=== PATIENT | male | born 1990 | race Caucasian/White ===

== ENCOUNTER 2023-12-20 17:45 | Emergency (ER) | payer OTHER, SELFPAY ==
--- NOTE | ~2023-12-20 | XR_ITS ---
EXAMINATION: XR chest 2V Exam Date/Time: 12/20/2023 17:55 CDT HISTORY: Lt. sided chest pain/cough/wheezing/sob x5 days; worsening Comparison: 11/03/2012, report only. RESULT: Lines, tubes, and devices: None. Lungs and pleura: Clear. Cardiomediastinal silhouette: Stable. Other: No acute osseous or upper abdominal finding. IMPRESSION: No acute cardiopulmonary process. Reviewed, dictated and finalized at location K.
--- NOTE | ~2023-12-20 | CT_ITS ---
EXAMINATION: CTA chest PE protocol DATE: 12/20/2023 20:20 INDICATION: chest pain, shortness of breath elevated D-dimer TECHNIQUE: Computed tomography angiography (CTA) of the chest was performed with 100 mL Omnipaque-350 intravenous contrast timed to evaluate the pulmonary arteries. Coronal maximum intensity projection 3D-reconstructions were created by the technologist. The dose-length product (DLP) was 453.02 mGy-cm. Automated exposure control and iterative reconstruction technique were employed. COMPARISON: X-ray chest, same date. FINDINGS: Lung parenchyma and airways: Clear. Pleura: Unremarkable. Thoracic inlet, axillae and chest wall: Unremarkable. Thoracic aorta: No significant dilation. No dissection. Mediastinum: Normal. Heart and pericardium: Normal. Coronary artery calcifications: Absent. Upper abdomen: No significant finding. Bones: Mild height loss at T9. Pulmonary arteries: Study quality: Beam hardening artifact, quantum mottle, and suboptimal contrast b olus, study remains diagnostic. No pulmonary emboli detected. IMPRESSION: No CT evidence of acute pulmonary embolus. No acute process detected in the chest. Mild height loss at T9, likely chronic discopathy by acute pain/tenderness. Reviewed, dictated and finalized at location K.
--- NOTE | 2023-12-20 17:49 | WPDEDEXPGENP ---
HPI - General Ped General Chief complaint: Upper Respiratory Infection Stated complaint: cough Time Seen by Provider: 12/20/23 17:48 Source: patient Mode of arrival: ambulatory Limitations: no limitations Nursing Documentation: reviewed/agree History of Present Illness HPI narrative: 33-year-old white male complains of a cough for the last 4 days worse in the last 2 days coughing up yellow sputum he has had some sinus drainage headache and fever up to 101.92 days ago feel short of breath off and on when he does not have a Fielder fever he feels pretty good he has been taking Motrin. He feels tired and fatigued says he has a sore throat from coughing. He has not seen a doctor in 3 years he has had some wheezing. Smokes half pack a day. He has had decreased appetite. Feels little lightheaded at times. Denies any problems eating or drinking voiding or stooling rash or itching bleeding or bruising swelling lumps or bumps. he had chest pain for last 5 minutes associated with his cough. Denies any runny nose he works at a [employer]. He has been taking ibuprofen which helps his headache and fever. His breathing is worth with smoke. His headache is a 1/10. denies any other complaints Past medical history drinking 10-12 beers a day for several years when he was younger. , chronic bronchitis no medications or surgeries he does not have a primary care provider. Had a history of anxiety. Denies any history of Heart, lung kidney liver disease hypertension depression cancer . 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 Not had any COVID exposure. Related Data Allergies Allergy/AdvReac Type Severity Reaction Status Date / Time No Known Allergies Allergy Verified 12/20/23 17:47 Pediatric Review of Systems All systems ED: reviewed and negative except as stated Pediatric Exam Narrative: Physical exam: White male no apparent distress. ?Head:? Normocephalic atraumatic.? Eyes conjunctiva pink sclera nonicteric.? Ears TMs are normal.? Oropharynx is clear with moist mucous membranes no exudates.? Neck is supple no lymphadenopathy nontender full range of motion.? Back is nontender.? Chest nontender.? Lungs are bronchial breath sounds without wheezes rales or rhonchi.? Heart is regular rate rhythm without murmurs gallops or rubs.? Abdomen soft and nontender no hepatosplenomegaly or masses no CVA tenderness no abdominal bruits.? Extremities no cyanosis clubbing or edema.? Neurological she is alert and oriented x4 motor and sensory grossly intact.? Skin is warm and dry without lesions. Course Vital Signs Vital signs: Vital Signs Temperature 37.9 C H 12/20/23 17:53 Pulse Rate 104 H 12/20/23 17:53 Respiratory Rate 20 12/20/23 17:53 Blood Pressure 135/78 12/20/23 17:53 Pulse Oximetry 96 12/20/23 17:53 Oxygen Delivery Room Air 12/20/23 17:53 Temperature 37.6 C 12/20/23 20:33 Pulse Rate 83 12/20/23 20:30 Respiratory Rate 18 12/20/23 20:30 Blood Pressure 121/74 12/20/23 20:30 Pulse Oximetry 98 12/20/23 20:30 Oxygen Delivery Room Air 12/20/23 20:30 Medical Decision Making [facility] Narrative Medical decision making narrative: ? Patient placed in room: 3 ? History and physical was performed. COVID flu RSV were negative lactic acid was normal, D-dimer is elevated at 2.43. CBC normal coags normal CMP except elevation in liver enzymes AST 249, ALT 356 alk-phos 161 Chest x-ray showed no active disease CT of chest PE study was negative for PE. Per radiologist:No CT evidence of acute pulmonary embolus. No acute process detected in the chest. Mild height loss at T9, likely chronic discopathy by acute pain/tenderness. Independent Historian: patient External Source Review: Differential Dx includes but not limited to: pneumonia bronchitis as medic bronchitis COVID flu RSV Medications were Reviewed: Medications given: DuoN
[2023-12-20 17:53] VITALS: BP 135/78; PULSE 104; RESP 20; TEMP 37.9; O2SAT 96
[2023-12-20 17:56] VITALS: O2SAT 96
[2023-12-20 17:59] VITALS: PULSE 100; RESP 20; O2SAT 99
--- NOTE | 2023-12-20 17:59 | ECG_ITS ---
SEE SCANNED COPY FOR CONFIRMED REPORT MTDD
[2023-12-20] MEDS: IBUPROFEN 600 MG TABLET PO (18:22)
[2023-12-20] MEDS: IPRATROPIUM 0.5 MG/ALBUTEROL SULFATE 2.5 MG AMPUL.NEB 3 ML INHALATION (18:37)
[2023-12-20 18:39] VITALS: PULSE 100; RESP 20; O2SAT 96
[2023-12-20 18:41] LABS: Hematocrit 46.3 % (40.0-54.0); Hemoglobin 15.4 g/dL (14.0-18.0); Mean Corpuscular HGB Conc 33.3 g/dL (32-36); Mean Corpuscular Hemoglobin 30.2 pg (27.0-31.0); Mean Corpuscular Volume 90.8 fL (78.0-102.0); Mean Platelet Volume 10.4 fl (8.7-11.0); Platelet Count Result 189 K/mm3 (150-420); Red Cell Distribution Width 13.2 % (11.6-14.4); White Blood Count 7.2 K/mm3 (4.8-10.8)
[2023-12-20 18:54] LABS: Alanine Aminotransferase 356 U/L (16-63); Albumin Level 3.8 g/dL (3.4-5.0); Alkaline Phosphatase 161 U/L (46-116); Anion Gap 11 mmol/L (4-12); Aspartate Amino Transferase 249 U/L (15-37); Bilirubin,Total 0.9 mg/dL (0.00-1.00); Blood Urea Nitrogen 8 mg/dL (7-18); Calcium 8.6 mg/dL (8.5-10.1); Carbon Dioxide 27 mmol/L (21-32); Chloride 104 mmol/L (98-108); Estimated CRCL calculation 98 ml/min; Estimated Glomerular Filt Rate > 60; Glucose 108 mg/dL (70-99); Osmolality Calculated 293 mOsm/kg (285-295); Potassium 3.9 mmol/L (3.5-5.1); Sodium 142 mmol/L (136-145); Total Protein 7.1 g/dL (6.4-8.2)
[2023-12-20 19:01] LABS: Partial Thromboplastin Time 27.9 Sec (23.9-30.70); Prothrombin Time 11.3 Seconds (9.50-12.1)
[2023-12-20 19:07] LABS: D Dimer 2.43 mg/L (0.19-0.50)
[2023-12-20 19:24] LABS: Influenza A QL RT-PCR Negative (Negative); Influenza B QL RT-PCR Negative (Negative); RSV RNA, RT-PCR Negative (Negative); SARS-CoV-2 RNA PCR Negative (Negative)
--- NOTE | 2023-12-20 19:58 | PC.NURSE ---
IV established. Pt resting in no distress. Pt aware of expected timeframe for results. Pt to CT with coroner technician at this time.
[2023-12-20 20:30] VITALS: BP 121/74; PULSE 83; RESP 18; TEMP 37.6; O2SAT 98
[2023-12-20 20:33] VITALS: TEMP 37.6
== END 2023-12-20 21:21 | disposition home or self-care (01) ==
PROVIDERS: Emergency Provider Emergency Medicine
DX: J20.9 Acute bronchitis, unspecified (principal); J45.909 Unspecified asthma, uncomplicated; R79.89 Other specified abnormal findings of blood chemistry; Z20.822 Contact with and (suspected) exposure to COVID-19; F17.220 Nicotine dependence, chewing tobacco, uncomplicated
CPT/HCPCS: 36415; 71046; 71275; 80053; 83605; 85027; 85380; 85610; 85730; 87637; 93005; 94640; 99284; A9270; Q9967